=== PATIENT | male | born 1980 | race Caucasian/White ===

== ENCOUNTER 2019-08-15 09:22 | Emergency (ER) | payer BC, OTHER ==
[2019-08-15] MEDS: Diphtheria/Tetanus Toxoids,Adult (Td) 0.5 ML SDV IM ONE (09:35)
--- NOTE | 2019-08-15 11:01 | EDM.PDOC ---
ED HPI GENERAL MEDICAL PROBLEM - General Chief Complaint: Laceration Stated Complaint: LACERATION Time Seen by Provider: 08/15/19 09:40 Source of Information: Reports: Patient, RN History Limitations: Reports: No Limitations - History of Present Illness INITIAL COMMENTS - FREE TEXT/NARRATIVE: 39 yo male presents with injury at work with wrench rebound into upper lip and laceration of lip. Pt lightheaded and bleeding from upper lip. No teeth loose with this, no head injury. Pt is alert and no acute distress. Consult with Dr Peoples to review and states no involvement of nick border. Pt is swallowing ok and moving head well and responding appropriately. Tetanus status unknown by pt. 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 Denies: Dental Pain, Nosebleed, Throat Pain, Throat Swelling Respiratory: Reports: No Symptoms Cardiovascular: Reports: No Symptoms ED EXAM, SKIN/RASH Exam: See Below Exam Limited By: No Limitations General Appearance: Alert, No Apparent Distress Ears: Hearing Grossly Normal Nose: Normal Inspection, Normal Mucosa Throat/Mouth: Normal Teeth, Normal Voice, No Airway Compromise, Other ( laceration to upper lip) Head: Atraumatic, Normocephalic. No: Facial Swelling, Facial Tenderness Neck: Normal Inspection, Supple, Non-Tender, Full Range of Motion Respiratory/Chest: No Respiratory Distress Cardiovascular: Normal Peripheral Pulses, Regular Rate, Rhythm Course - Vital Signs Last Recorded V/S: Last Vital Signs Temp 97.4 F 08/15/19 09:35 Pulse 77 08/15/19 09:35 Resp 16 08/15/19 09:35 BP 145/99 H 08/15/19 09:35 Pulse Ox 99 08/15/19 09:35 - Orders/Labs/Meds Orders: Active Orders 24 hr Category Date Time Status Vaccines to be Administered [RC] PER UNIT ROUTINE Care 08/15/19 16:01 Active Meds: Medications Discontinued Medications Generic Name Dose Route Start Last Admin Trade Name Freq PRN Reason Stop Dose Admin Tetanus/Diphtheria Toxoids 0.5 ml 08/15/19 09:35 08/15/19 09:35 Tenivac IM 08/15/19 09:36 0.5 ml .ONCE ONE Administration - Re-Assessments/Exams Free Text/Narrative Re-Assessment/Exam: 08/15/19 11:01 LE Area cleansed with Nacl and betadine, area anesthetize with Lidocaine 1%, Bleeding controlled with pressure. 3 sutures, 5-0 ethilon used. Area of skin is well aligned. No foreign body noted to laceration and irrigated wound well. Pt tolerated procedure well. 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 Recommend use of ice to area, use of vaseline to area bid, keep inside of mouth clean and rinse well. RTC in 5 days for suture removal. Monitor for any signs of infection or fever. Tetanus vaccine updated. Pt discharge in no acute distress to . Departure - Departure Time of Disposition: 10:50 Disposition: Home, Self-Care 01 Condition: Good Clinical Impression: Injury of lip, Laceration of lip - Discharge Information *PRESCRIPTION DRUG MONITORING PROGRAM REVIEWED*: Not Applicable *COPY OF PRESCRIPTION DRUG MONITORING REPORT IN PATIENT IDANIA: Not Applicable Instructions: Mouth Laceration, [id number] Referrals: PCP,None [Primary Care Provider] - Forms: ED Department Discharge Care Plan Goals: Return on Tuesday for suture removal. Keep area clean and dry. May take Ibuprofen or tylenol for pain. Return to clinic or hospital with any questions or concerns. May apply vaseline or a little antibiotic ointment to area 2 times a day. Sepsis Event Note - Evaluation Sepsis Screening Result: No Definite Risk - Focused Exam Vital Signs: Vital Signs Temp Pulse Resp BP Pulse Ox 08/15/19 09:35 97.4 F 77 16 145/99 H 99 Date Exam was Performed: 08/15/19 Time Exam was Performed: 20:22 - My Orders Last 24 Hours: My Active Orders 08/15/19 16:01 Vaccines to be Administered [RC] PER UNIT ROUTINE - Assessment/Plan Last 24 Hours: My Active Orders 08/15/19 16:01 Vaccines to be Administered [RC] PER UNIT ROUTINE Plan: Recommend use of ice to area, use of vaseline to area bid, keep inside of mouth clean and rinse well. RTC in 5 days for suture removal. Monitor for any signs of infection or fever. Tetanus vaccine updated. Pt discharge in no acute distress to .
== END 2019-08-15 09:50 | disposition home or self-care (01) ==
LOC: LB.ED 09:22
DX: S01.511A Laceration without foreign body of lip, initial encounter (principal); Z23 Encounter for immunization; W20.8XXA Other cause of strike by thrown, projected or falling object, initial encounter; Y99.0 Civilian activity done for income or pay
CPT/HCPCS: 12011; 90471; 90714; 99283-25

== ENCOUNTER 2021-07-05 15:30 | Emergency (ER) | payer BC ==
[2021-07-05] MEDS ORDERED: Erythromycin Base 0.5% Ophth Oint 3.5 GM Tube ONE (16:00)
--- NOTE | 2021-07-05 16:14 | EDM.PDOC ---
ED HPI GENERAL MEDICAL PROBLEM - General Chief Complaint: Eye Problems Stated Complaint: eyes swollen Time Seen by Provider: 07/05/21 15:50 Source of Information: Reports: Patient, Family History Limitations: Reports: No Limitations - History of Present Illness INITIAL COMMENTS - FREE TEXT/NARRATIVE: This patient presents to emergency department for evaluation of eye redness and swelling. He states that earlier today when he was out hunting he felt something get into his right eye. He thought he removed it however feels as though there is still something in his eye and has continued to rub it. Shortly after that he began having eye redness in his left eye as well. He does not think there is anything in that eye. His states that he has had allergic reaction similar to this in the past and she reports that his left eye was quite swollen but does seem some better now. She did give him Zyrtec at home. He denies fever, other concerns or complaints. - Related Data Allergies Allergy/AdvReac Type Severity Reaction Status Date / Time No Known Allergies Allergy Verified 07/05/21 15:50 Home Meds: Home Meds NK [No Known Home Meds] 07/05/21 [History] Past Medical History - Past Health History Medical/Surgical History: Denies Medical/Surgical History Social & Family History - Recreational Drug Use Recreational Drug Use: No ED ROS GENERAL - Review of Systems Review Of Systems: Comprehensive ROS is negative, except as noted in HPI. ED EXAM GENERAL W FULL EYE - Physical Exam Exam: See Below Exam Limited By: No Limitations General Appearance: Alert, No Apparent Distress Eye Exam: Bilateral Eye: Conjunctival Injection, EOMI, Foreign Body (No foreign body noted in either eye), PERRL, Other Eyelids: Right: Edema, Bilateral: Normal Appearance, Foreign Body (No foreign body noted), Lid Everted for Exam Conjunctiva & Sclera: Left: Conjunctival Edema, Bilateral: Injected Extraocular Movements: Bilateral: Intact Pupillary Size: Bilateral: 5 mm Pupillary Reaction: Bilateral: Brisk Ears: Normal External Exam, Normal TMs Head: Atraumatic, Normocephalic Neck: Normal Inspection, Full Range of Motion Respiratory/Chest: No Respiratory Distress, No Accessory Muscle Use Neurological: Alert, Oriented Psychiatric: Normal Affect Skin Exam: Warm, Dry, Intact ED EYE w/ Add Procedure - Eye Procedure Alcaine Drops Administered: Yes Eye FB Removal: Other (No foreign body noted) Cyclogel 2 Drops Administered: Right Eye Antibiotic Oinment/Drps Admin: Right Eye Course - Vital Signs Last Recorded V/S: Last Vital Signs Temp 36.6 C 07/05/21 15:46 Pulse 73 07/05/21 15:46 Resp 18 07/05/21 15:46 BP 131/97 H 07/05/21 15:46 Pulse Ox 98 07/05/21 15:46 - Re-Assessments/Exams Free Text/Narrative Re-Assessment/Exam: This patient presents to the emergency department for evaluation of bilateral eye irritation. History and clinical findings are most consistent with a corneal abrasion to his right eye as well as allergic reaction. This was noted after a Trotter lamp eye exam with increased uptake of fluorescein to the 3 o'clock position of the right eye. There is no evidence of a penetrating globe injury, corneal clouding, irregular pupil or extraocular movements. There is no evidence of a hyphema, iritis, infectious keratitis, or scleritis. He does have evidence of allergic conjunctivitis with both eyes erythematous and injected. He will be treated with an antibiotic eye ointment today and was encouraged to continue to use an antihistamine such as Zyrtec He should be seen by his primary care provider in 2 to 3 days if he is not better, sooner if he is worse in any way. Departure - Departure Time of Disposition: 16:15 Disposition: Home, Self-Care 01 Condition: Good Clinical Impression: Corneal abrasion, Allergic conjunctivitis - Discharge Information *PRESCRIPTION DRUG MONITORING PROGRAM REVIEWED*: Not Applicable *COPY OF PRESCRIPTION DRUG MONITORING REPORT IN PATIENT IDANIA: Not Applicable Instructions: Corneal Abrasion, [id number] Referrals: PCP,None [Primary Care Provider] - Forms: ED Department Discharge Care Plan Goals: Apply erythromycin ointment three times daily Sepsis Event Note (ED) - Evaluation Sepsis Screening Result: No Definite Risk - Focused Exam Vital Signs: Vital Signs Temp Pulse Resp BP Pulse Ox 07/05/21 15:46 36.6 C 73 18 131/97 H 98
== END 2021-07-05 16:12 | disposition home or self-care (01) ==
LOC: LB.ED 15:30
DX: S05.01XA Injury of conjunctiva and corneal abrasion without foreign body, right eye, initial encounter (principal); S05.02XA Injury of conjunctiva and corneal abrasion without foreign body, left eye, initial encounter; H10.13 Acute atopic conjunctivitis, bilateral; R60.0 Localized edema; W22.09XA Striking against other stationary object, initial encounter
CPT/HCPCS: 99282; A9270